=== PATIENT | male | born 1950 | race Caucasian/White ===

== ENCOUNTER 2023-03-07 23:50 | Emergency (ER) | payer MEDICARE, OTHER, SELFPAY ==
--- NOTE | 2023-03-07 23:53 | ED.GENADULT ---
HPI - General Adult General Time Seen by Provider: 23:53 Date Seen: 03/07/23 Chief complaint: Arrhythmia/Palpitations Stated complaint: Irregular Heartbeat Time Seen by Provider: 03/07/23 23:52 Source: patient, RN notes reviewed and old records reviewed Mode of arrival: ambulatory Limitations: no limitations History of Present Illness HPI narrative: 72-year-old male who presents today with palpitations. Patient reports a long history of intermittent palpitations, had an episode about 2 years ago and subsequently underwent ablation. No known further episodes although it sounds like he is generally minimally symptomatic with these. Tonight around 10:00 p.m. started feeling like his heart was going fast and checked it, rate was about 140 and so decided to come to the emergency department. Denies chest pain, shortness of breath, nausea, vomiting, lightheadedness. Takes a baby aspirin but no other medications now. No allergies. No blood thinners and does not have a Watchman by his report. Related Data Home Medications Medication Instructions Recorded Confirmed aspirin 81 mg capsule 81 mg PO DAILY 03/08/23 03/08/23 glucosamine-chondroitin .ROUTE 03/08/23 tamsulosin PO 03/08/23 Allergies Allergy/AdvReac Type Severity Reaction Status Date / Time Penicillins AdvReac Verified 03/08/23 00:05 Review of Systems Status of ROS: Reports: 10 or more systems reviewed and unremarkable except as noted in History and below PFSH PFS Social History Smoking Status: Never smoker Do you use any of these nicotine containing products: None How often do you have a drink containing alcohol: never AUDIT-C Alcohol total score: 0 Non-prescribed substance use: denies use Exam Narrative: Exam Narrative: General: Well-developed and well-nourished, no acute distress Head: Atraumatic and normocephalic Eyes: Pupils are equal reactive, extraocular motions intact, conjunctiva clear ENT: External nose and ears are normal, posterior pharynx without erythema or exudate Neck: No midline cervical tenderness, full spontaneous range of motion the neck, trachea midline, no adenopathy Heart: Tachycardic but regular Lungs: Clear to auscultation bilaterally without wheezes or crackles Abdomen: Soft, nontender, nondistended with active bowel sounds Musculoskeletal: No tenderness, deformity, or edema Neurologic: Awake, alert, and oriented x3, no gross focal neurologic deficits, cranial nerves intact as tested Psych: Mood and affect are appropriate Skin: No rashes Const: Vital Signs, click to edit/add: Vital Signs - 24 hr 03/08/23 00:00 03/08/23 00:10 03/08/23 00:15 Temperature 97.8 F Pulse Rate 138 H 141 H Pulse Rate [Left P ulse Oximeter] 148 H Respiratory Rate 18 Blood Pressure Blood Pressure [Ri ght Upper Arm] 158/97 H Pulse Oximetry 97 96 95 Oxygen Delivery Me thod Room Air Oxygen Flow Rate 03/08/23 00:16 03/08/23 00:20 03/08/23 00:22 Temperature Pulse Rate 140 H 138 H 138 H Pulse Rate [Left P ulse Oximeter] Respiratory Rate Blood Pressure 143/115 H 151/110 H Blood Pressure [Ri ght Upper Arm] Pulse Oximetry 95 95 95 Oxygen Delivery Me thod Oxygen Flow Rate 03/08/23 00:25 03/08/23 00:26 03/08/23 00:32 Temperature Pulse Rate 141 H 143 H 140 H Pulse Rate [Left P ulse Oximeter] Respiratory Rate Blood Pressure 120/91 H 134/98 H Blood Pressure [Ri ght Upper Arm] Pulse Oximetry 95 95 95 Oxygen Delivery Me thod Oxygen Flow Rate 03/08/23 00:35 03/08/23 00:36 03/08/23 00:40 Temperature Pulse Rate 138 H 139 H 133 H Pulse Rate [Left P ulse Oximeter] Respiratory Rate 16 Blood Pressure 133/104 H Blood Pressure [Ri ght Upper Arm] Pulse Oximetry 94 95 95 Oxygen Delivery Me thod Oxygen Flow Rate 03/08/23 00:41 03/08/23 00:45 03/08/23 00:47 Temperature Pulse Rate 138 H 138 H Pulse Rate [Left P ulse Oximeter] Respiratory Rate Blood Pressure 141/111 H 154/116 H Blood Pressure [Ri ght Upper Arm] Pulse Oximetry 95 95 Oxygen Delivery Me thod Oxygen Flow Rate 03/08/23 00:54 03/08/23 00:55 03/08/23 01:00 Temperature Pulse Rate 145 H 143 H 137 H Pulse Rate [Left P ulse Oximeter] Respiratory Rate Blood Pressure Blood Pressure [Ri ght Upper Arm] Pulse Oximetry 94 94 93 Oxygen Delivery Me thod Oxygen Flow Rate 03/08/23 01:02 03/08/23 01:05 03/08/23 01:10 Temperature Pulse Rate 137 H 139 H 137 H Pulse Rate [Left P ulse Oximeter] Respiratory Rate 16 Blood Pressure 137/101 H Blood Pressure [Ri ght Upper Arm] Pulse Oximetry 94 95 94 Oxygen Delivery Me thod Oxygen Flow Rate 03/08/23 01:15 03/08/23 01:16 03/08/23 01:28 Temperature Pulse Rate 138 H 137 H 140 H Pulse Rate [Left P ulse Oximeter] Respiratory Rate Blood Pressure 146/104 H Blood Pressure [Ri ght Upper Arm] Pulse Oximetry 94 94 95 Oxygen Delivery Me thod Oxygen Flow Rate 03/08/23 01:30 03/08/23 01:31 03/08/23 01:35 Temperature Pulse Rate 136 H 137 H 135 H Pulse Rate [Left P ulse Oximeter] Respiratory Rate Blood Pressure 137/105 H Blood Pressure [Ri ght Upper Arm] Pulse Oximetry 95 94 96 Oxygen Delivery Me thod Oxygen Flow Rate 03/08/23 01:40 03/08/23 01:49 03/08/23 01:50 Temperature Pulse Rate 135 H 142 H 137 H Pulse Rate [Left P ulse Oximeter] Respiratory Rate Blood Pressure Blood Pressure [Ri ght Upper Arm] Pulse Oximetry 95 96 95 Oxygen Delivery Me thod Oxygen Flow Rate 03/08/23 01:52 03/08/23 01:55 03/08/23 02:00 Temperature Pulse Rate 136 H 138 H 135 H Pulse Rate [Left P ulse Oximeter] Respiratory Rate Blood Pressure 140/118 H Blood Pressure [Ri ght Upper Arm] Pulse Oximetry 94 94 96 Oxygen Delivery Me thod Oxygen Flow Rate 03/08/23 02:02 03/08/23 02:05 03/08/23 02:10 Temperature Pulse Rate 137 H 136 H 136 H Pulse Rate [Left P ulse Oximeter] Respiratory Rate Blood Pressure 131/103 H Blood Pressure [Ri ght Upper Arm] Pulse Oximetry 95 95 95 Oxygen Delivery Me thod Oxygen Flow Rate 03/08/23 02:15 03/08/23 02:20 03/08/23 02:25 Temperature Pulse Rate 136 H 136 H 136 H Pulse Rate [Left P ulse Oximeter] Respiratory Rate Blood Pressure Blood Pressure [Ri ght Upper Arm] Pulse Oximetry 95 94 95 Oxygen Delivery Me thod Oxygen Flow Rate 03/08/23 02:30 03/08/23 02:31 03/08/23 02:35 Temperature Pulse Rate 136 H 136 H 136 H Pulse Rate [Left P ulse Oximeter] Respiratory Rate Blood Pressure 122/93 H Blood Pressure [Ri ght Upper Arm] Pulse Oximetry 95 95 96 Oxygen Delivery Me thod Oxygen Flow Rate 03/08/23 02:40 03/08/23 03:07 Temperature Pulse Rate 137 H Pulse Rate [Left P ulse Oximeter] Respiratory Rate Blood Pressure Blood Pressure [Ri ght Upper Arm] Pulse Oximetry 95 Oxygen Delivery Me thod Nasal Cannula Oxygen Flow Rate 2 Course Course ED Course: Patient seen examined, prior records are reviewed. Patient presents today with fast heart rate, found to be in atrial flutter with 2-1 block and rate 148. Other than palpitations, patient is asymptomatic with this. Discussed treatment. Patient says he thinks he may have some short episodes of atrial flutter occasionally, although nothing verified since his ablation. He is not on blood thinners. Due to patient with minimally symptomatic atrial flutter and concern for paroxysmal atrial flutter or fibrillation, patient is felt to be slightly higher risk for thromboembolic event from electrical cardioversion. Will work on rate control with diltiazem and magnesium of fluids, will discuss with [facility]. Did consider pulmonary embolism but patient has no shortness of breath, pleuritic chest pain, and has a history of atrial flutter and fibrillation in the past. Reevaluation(s) Time of Reevaluation #1: 00:55 Reevaluation #1: Labs so far to panel interpreted by me with reassuring CBC, negative troponin. After diltiazem 20 mg, no change in heart rate. Repeat diltiazem is ordered. Time of Reevaluation #2: 01:21 Reevaluation #2: Patient rechecked after 2nd dose of Cardizem with no improvement and rate, blood pressure remained stable and patient still remains asymptomatic. Discussed disposition with the patient. Given atrial flutter with no response to diltiazem in patient who is a poor candidate for urgent or emergent electrical cardioversion, may need to admit for rate control. Discussed this with the patient and will discuss with Cardiology. Age adjusted D-dimer is negative. Time of Reevaluation #3: 01:32 Reevaluation #3: Care discussed with cardiology at [facility]. Recommends Eliquis, delayed 2 hours and cardiovert. Patient updated with plan and is agreeable. Additional Reevaluation(s): 4:15 a.m. electrical cardioversion performed with anesthesia providing procedural sedation. Successful cardioversion, will monitor in the emergency department and anticipate discharge. Repeat EKG independently interpreted by me performed at 3:06 a.m. demonstrates sinus rhythm rate 59, no acute ST elevations or depressions, normal intervals, normal axis, MO 102, QTC 415. Compared to prior of earlier today, sinus rhythm has replaced atrial flutter. Vital Signs Vital signs: Initial Vital Signs Respiratory Effort Normal, Spontaneous, Non-Labored 03/07/23 23:56 Respiratory Depth Normal 03/07/23 23:56 Respiratory Pattern Normal 03/07/23 23:56 Vital Signs Temperature 97.8 F 03/08/23 00:00 Pulse Rate 148 H 03/08/23 00:00 Respiratory Rate 18 03/08/23 00:00 Blood Pressure 158/97 H 03/08/23 00:00 Pulse Oximetry 97 03/08/23 00:00 Oxygen Delivery Method Room Air 03/08/23 00:00 Temperature 97.8 F 03/08/23 00:00 Pulse Rate 137 H 03/08/23 02:40 Respiratory Rate 16 03/08/23 01:02 Blood Pressure 122/93 H 03/08/23 02:31 Pulse Oximetry 95 03/08/23 02:40 Oxygen Delivery Method Nasal Cannula 03/08/23 03:07 Oxygen Flow Rate 2 03/08/23 03:07 Medical Decision Making Medical Records Medical records reviewed: Yes I reviewed the patient's medical records Lab Data Lab results reviewed: Yes I reviewed the patient's lab results Labs: Lab Results 03/08/23 03/08/23 Range/Units 00:05 02:46 WBC 4.81 (4.50-11.00) K/uL RBC 4.80 (4.30-5.90) m/uL Hgb 15.6 (13.5-17.5) gm/dL Hct 46.1 (37.0-53.0) % MCV 96 (80-100) fL MCH 33 (26-34) pg MCHC 34 (32-36) gm/dL RDW Coeff of Meghana 11.7 (11.5-15.5) % Plt Count 253 (140-440) K/uL Neut % (Auto) 51.0 (42.0-72.0) % Lymph % (Auto) 32.2 (20-44) % [place] % (Auto) 12.9 H (0.0-11.0) % Eos % (Auto) 2.5 (0.0-7.0) % Baso % (Auto) 0.6 (0.0-3.0) % Neut # (Auto) 2.45 (1.7-7.0) K/uL Lymph # (Auto) 1.55 (0.90-2.90) K/uL [place]all # (Auto) 0.60 (0.00-0.90) K/UL Eos # (Auto) 0.12 (0.00-0.50) K/uL Baso # (Auto) 0.03 (0.00-0.30) K/uL Abs Immat Gran (auto) 0.04 (0.00-0.30) K/uL Imm/Tot Granulo (auto) 0.8 % D-Dimer Quant (PE/DVT) 0.66 H (0.00-0.50) ug/ml Sodium 143 (135-149) mmol/L Potassium 3.7 (3.6-5.1) mmol/L Chloride 109 (96-114) mmol/L Carbon Dioxide 24 (20-32) mmol/L Anion Gap 10 (7-15) mEq/L BUN 19 (7-30) mg/dL Creatinine 1.1 (0.5-1.5) mg/dL Estimated Creat Clear 57.86 Estimated GFR 71 ml/min Glucose 98 (60-115) mg/dL Calcium 9.4 (8.4-10.6) mg/dL Magnesium 1.9 (1.5-2.6) mg/dL NT-Pro-B Natriuret Pep 199 pg/mL Urine Color Yellow (Yellow) Urine Appearance Clear (Clear) Urine pH 7.0 (5.0-8.5) Ur Specific [place] 1.020 (1.000-1.030) Urine Protein Negative (Negative) Urine Glucose (UA) Negative (Negative) Urine Ketones Negative (Negative) Urine Blood Negative (Negative) Urine Nitrite Negative (Negative) Urine Bilirubin Negative (Negative) Urine Urobilinogen 0.2 (0.2-1.0) Ur Leukocyte Esterase Negative (Negative) Urine RBC 0-2 (0-2) Urine WBC 0-2 (0-5) Ur Squamous Epith Cells Few (None-Few) Urine Bacteria None (None) POC Troponin I 0.00 L (0.01-0.04) ng/ml ECG Data Attestation: I personally reviewed and interpreted this ECG as follows: Prior ECG tracings: not available for review Interpretation: Performed at 11:50 p.m. demonstrates atrial flutter with 2-1 block rate 148, diffuse ST changes, normal intervals, normal axis. No prior for comparison. Discharge Plan Discharge Clinical Impression: Atrial flutter with rapid ventricular response Patient Disposition: Home w/ Parent or Adult Condition: Improved Instructions: Atrial Flutter (ED), Blood Thinners (ED) Additional Instructions: Take Eliquis as prescribed Take metoprolol as needed if you develop atrial flutter fibrillation again Follow-up with your aboriginal community council member this week Activity Level: Activity as Tolerated Discharge Diet: Regular Prescriptions: No Action tamsulosin PO glucosamine-chondroitin .ROUTE aspirin 81 mg capsule 81 mg PO DAILY Stand Alone Forms: [employer] Info Instructions Procedures Additional Procedures Procedure name: Electrical cardioversion Pre procedure diagnosis: Atrial flutter with rapid response Post procedure diagnosis: Same Written consent by: patient Site marking: not applicable Verification/time out: correct patient Estimated blood loss (if any): none Conclusion: patient tolerated procedure Additional comments: Discussed risks and benefits of procedure and sedation with patient, written consent was obtained. Patient monitor with special education coordinator, pulse oximetry, end-tidal CO2. Airway supplies available at the bedside. After time-out, sedation was administered. After adequate sedation, a synchronized 100 joule shock was delivered. Brief pause and bradycardic dysrhythmia with resumption sinus rhythm rate in the 50s to 60s. Patient tolerated the procedure well. Recovered from anesthesia. Total MD time 10 minutes
[2023-03-08] VITALS (94 sets, daily range): BP systolic 87–158; BP diastolic 62–118; PULSE 55–148; RESP 11–23; TEMP 36.6; O2SAT 93–98; BMI 25.8
[2023-03-08 00:21] LABS: Basophils Absolute Auto 0.03 K/uL (0.00-0.30); Basophils Percent Auto 0.6 % (0.0-3.0); Eosinophils Absolute Auto 0.12 K/uL (0.00-0.50); Eosinophils Percent Auto 2.5 % (0.0-7.0); Hematocrit 46.1 % (37.0-53.0); Hemoglobin* 15.6 gm/dL (13.5-17.5); Immature Granulocytes Abs Auto 0.04 K/uL (0.00-0.30); Immature Granulocytes Pct Auto 0.8 %; Lymphocytes Absolute Auto 1.55 K/uL (0.90-2.90); Lymphocytes Percent Auto 32.2 % (20-44); Mean Corpuscular HGB Conc 34 gm/dL (32-36); Mean Corpuscular Hemoglobin 33 pg (26-34); Mean Corpuscular Volume 96 fL (80-100); Monocytes Percent Auto 12.9 % (0.0-11.0); Neutrophils Absolute Auto 2.45 K/uL (1.7-7.0); Platelet Count* 253 K/uL (140-440); RDW Coefficient of Variation % 11.7 % (11.5-15.5); White Blood Count* 4.81 K/uL (4.50-11.00)
[2023-03-08] MEDS: dilTIAZem 5 MG/ML inj 20 MG IVP ×2 (00:23→01:00)
[2023-03-08 00:25] LABS: Slide Review Reflex No
[2023-03-08] MEDS: MAGNESIUM IV 2 GM/50 ML PIGGYBACK IVPB (00:28)
[2023-03-08] MEDS: 0.9 % SODIUM CHLORIDE 1000 ml 1,000 ML IV (00:28)
--- OUTSIDE RECORDS SUMMARY | 2023-03-08 00:57 | XMS_ITS | Continuity of Care Document ---
Author Name Unknown Address [address] [place] [address] Phone Organization [facility] Address [address] [place] [address] Phone Care Team Providers Care [employer] Installer Name Role Phone MD Suresh Stevens Primary Care Provider MD Suresh Stevens Attending Provider MD Suresh Stevens Referring Provider Care Teams Patient Care Team Team Status: Active Member Role Status Demetra Stevens MD Primary Care Provider Active Visit Care Team Team Status: Inactive Member Role Status Demetra Stevens MD Primary Care Provi kathryn, Attending Provider, Referring Provider Active Chief Complaint and Reason for Visit Chief Complaint AWV Reason for Visit Impaired fasting glu cose Preventative health care Renal cell carcinoma of left kidney Encounter for routine adult health examination Allergies, Adverse Reactions, Alerts Allergen Type Severity Reaction Last Updated Verified Status Penicillins Allergy Moderate hives/rash November 11, 2022 8:25am Tee s Active Social History Smoking Status Status Start Date End Date Date of Observa tion Ex-smoker (finding) October 30, 2021 10:13am Additional Data Assigned Sex Male Family History Relationship Condition Age at Onset Recorded Date/T jackie father Hypertension Unknown Diabetes mellitus Unknown Diagnosis unknown Unknown mother Malignant neoplasm of uterus Unknown sister Down syndrome Unknown sister Malignant neoplasm of lung Unknown extended family member Diagnosis unknown Unknown Problems Active Problems Medical Problem Onset Date Status Junctional rhythm Active Presbyopia of both eyes Active Preventative health care Active Combined forms of age-related cataract of both e yes Active Hearing loss October 15, 2018 Active Multiple melanocytic nevi Active Actinic keratosis Active Seborrheic keratosis Active Dermatofibroma Active Sinus bradycardia Active Renal cell carcinoma of left kidney Active Impaired fasting glucose Active Bacterial sinusitis September 11, 2021 Active Right foot pain Active Sun-damaged skin Active Inactive/Resolved Problems Medical Problem Onset Date Status Junctional rhythm Resolved History of dysplastic nevus Reso lved History of dysplastic nevus Reso lved Palpitations Resolved Lightheadedness Resolved Fracture of left wrist Resolved Atrial flutter Resolved Chronic anticoagulation Resolved Bradycardia Resolved S/P ablation of atrial flutter R esolved Screening for AAA (abdominal aortic aneurysm) ne 2020 Resolved Bilateral impacted cerumen Resol shivani Medications Medication Status Dose Units Route Directions Qty Days St art Date End Date Instructions Tamsulosin Discontin ued 0.4 MG PO Daily 2019 8:36am 2019 8:36am Tamsulosin Discontin ued 0 .ROUTE .[facility] 2019 8:36am November 01, 2019 9:07am TAKE 1 CAPSULE BY MOUTH ONCE DAILY 30 MINUTES AFTER THE SAME MEAL. Tamsulosin Discontin ued 0 .ROUTE .[facility] November 06, 2020 9:24am February 13, 2021 9:19am TAKE 1 CAPSULE BY MOUTH ONCE DAILY 30 MINUTES AFTER THE SAME MEAL. Tamsulosin Discontin ued 0 .ROUTE .[facility] February 13, 2021 9:19am 2021 9:39am TAKE 1 CAPSULE BY MOUTH ONCE DAILY 30 MINUTES AFTER THE SAME MEAL. Tamsulosin Discontin ued 0 .ROUTE .[facility] 2021 9:39am November 06, 2021 9:17am TAKE 1 CAPSULE BY MOUTH ONCE DAILY 30 MINUTES AFTER THE SAME MEAL. Ascorbate Calcium (Vitamin C) Active 500 MG PO Daily December 16, 2018 12:00am Glucosamine Sulfate (Glucosamine) 500 mg tablet Active 500 MG PO Two times per day December 16, 2018 12:00am Aspirin (Adult Low Dose Aspirin) 81 mg tablet,delaye d release (DR/EC) Discontin ued 81 MG PO Daily November 01, 2020 12:00am October 30, 2021 10:16a m Rivaroxaban (Xarelto) 20 mg tablet Discontin ued 20 MG PO Every evening 60 August 29, 2021 1:00am November 30, 2021 5:20pm must administer with evening meal Start 2 weeks prior to the ablation Aspirin Active 81 MG PO Daily 30 November 30, 2021 12:00am Metformin Discontin ued 500 MG PO Two times per day 180 November 01, 2019 9:07am November 28, 2020 2:47pm Tamsulosin Discontin ued 0 .ROUTE .[facility] November 01, 2019 9:07am November 06, 2020 9:24am TAKE 1 CAPSULE BY MOUTH ONCE DAILY 30 MINUTES AFTER THE SAME MEAL. Tamsulosin Discontin ued 0.4 MG PO Daily November 16, 2018 12:00am Februa 2019 8:36am Metformin Discontin ued 500 MG PO Two times per day 180 November 16, 2018 12:00am November 01, 2019 9:07am Sulfamethoxaz ole-Trimethop rim Discontin ued 1 TAB PO Once November 16, 2018 12:00am September 19, 2019 7:18am VORB LOT#:[id number] EXP:02/16 SAMPLE GIVEN, ONCE, ONE DOSE, NO REFILLS Tamsulosin Discontin ued 0 .ROUTE .[facility] November 06, 2021 9:17am November 11, 2022 8:59am TAKE 1 CAPSULE BY MOUTH ONCE DAILY 30 MINUTES AFTER THE SAME MEAL. Azithromycin Discontin ued 0 PO .COMPLEX September 11, 2021 12:00am October 30, 2021 10:16a m For 250 mg dose pack: take 500 mg today (day 1), then 250 mg for 4 days (days 2-5) PO Tamsulosin Active 0 .ROUTE .[facility] November 11, 2022 8:59am TAKE 1 CAPSULE BY MOUTH ONCE DAILY 30 MINUTES AFTER THE SAME MEAL. Hydrocodone-A cetaminophen ([place]) 7.5-325 mg tablet Discontin ued 1 TAB PO Q4H September 19, 2019 November 01, 2019 8:48am No driving for 4 hours after taking Immunizations Immunization Event Date Not Given Reason Dose Number [employer] Lot Number Vaccine Information Statement (VIS) Detail [id number] Purple Cap 12+ September 05, 2020 [id number] Purple Cap 12+ September 26, 2020 [id number] Purple Cap 12YR+ March 29, 2021 [id number] BV Magallanes Cap 12YR+ May 20, 2022 [id number] Magallanes Cap 12YR+ October 04, 2021 [id number] Influenza Quad 3 years+ Afluria February 25, 2020 Influenza IIV4 6M+ July 10, 2012 Influenza IIV4 6M+ February 25, 2020 Influenza IIV4 6M+ MDV March 16, 2015 Influenza (65+) trivalent FLUAD March 30, 2019 Influenza (65+) quadrivalent FLUAD March 17, 2021 Influenza (65+) quadrivalent FLUAD March 30, 2022 Influenza Quad 6M+ Fluarix-historic al March 17, 2018 Influenza Intradermal July 10, 2012 Fluzone High-Dose 65YR+ - Historical March 19, 2016 Fluzone High-Dose 65YR+ - Historical February 12, 2017 Pneumococcal Conjugate Vaccine, 13 valent June 09, 2015 Pneumococcal Polysacc. Vaccine, 23 valent September 17, 2017 Zoster (Shingrix) February 08, 2019 Zoster (Shingrix) April 15, 2019 Tetanus, Diphtheria (Td) generic June 19, 2010 Tetanus, Diphtheria (Td) generic July 03, 2020 Tdap-Tetanus, Diphtheria, Acellular Pertussis December 16, 2008 Tdap-Tetanus, Diphtheria, Acellular Pertussis June 19, 2010 Trivalent Influenza Vaccine May 19, 2010 Trivalent Influenza Vaccine April 11, 2013 Trivalent Influenza Vaccine March 30, 2014 Zoster (Zostavax) February 05, 2011 Medical Equipment Device Date Implanted Device Details DEVICE,CLOSURE VASCULAR 6-12FR October 30, 2021 DEVICE,CLOSURE VASCULAR 6-12FR October 30, 2021 DEVICE,CLOSURE VASCULAR 6-12FR October 30, 2021 Relevant Diagnostic Tests and/or Laboratory Data Laboratory Results Test Date/Time Result Interpretation Reference Range Result Comment Performing Site White Blood Count November 11, 2022 9:06am 4.2 K/uL 4.0-10.0 [facility] [id number] [address] [place] [address] 42442 Red Blood Count November 11, 2022 9:06am 4.40 M/uL 4.63-6.08 [facility] [id number] [address] [place] [address] 81330 Hemoglobin November 11, 2022 9:06am 14.2 g/dL 13.7-17.5 [facility] [id number] [address] [place] [address] 51786 Hematocrit November 11, 2022 9:06am 42.0 % 40.1-51.0 [facility] [id number] [address] [place] [address] 13086 Mean Corpuscular Volume November 11, 2022 9:06am 95.50 fl 80.00-98.0 0 [facility] [id number] [address] [place] [address] 74167 Mean Corpuscular Hemoglobin November 11, 2022 9:06am 32.3 pg 25.6-32.2 [facility] [id number] [address] [place] [address] 89514 Mean Corpuscular Hgb Concent Diff November 11, 2022 9:06am 33.8 g/dl 32.2-36.0 [facility] [id number] [address] [place] [address] 08724 Red Cell Distribution Width November 11, 2022 9:06am 11.8 % 11.6-14.4 [facility] [id number] [address] [place] [address] 49528 Platelet Count November 11, 2022 9:06am 230 K/uL 150-450 [facility] [id number] [address] [place] [address] 51431 Mean Platelet Volume November 11, 2022 9:06am 9.1 fl 9.1-12.4 [facility] [id number] [address] [place] [address] 83373 Absolute Neutrophils (auto) November 11, 2022 9:06am 1.97 K/uL 1.56-6.13 [facility] [id number] [address] [place] [address] 16611 Absolute Immature Granulocyte (auto November 11, 2022 9:06am 0.01 k/uL 0.00-0.07 [facility] [id number] [address] [place] [address] 49164 Absolute Lymphocytes (auto) November 11, 2022 9:06am 1.58 K/uL 1.18-3.74 [facility] [id number] [address] [place] [address] 36102 Absolute Monocytes (auto) November 11, 2022 9:06am 0.56 K/uL 0.24-0.82 [facility] [id number] [address] [facility] [address] Absolute Eosinophils (auto) November 11, 2022 9:06am 0.09 K/uL 0.04-0.54 [facility] [id number] [address] [facility] [address] Absolute Basophils (auto) November 11, 2022 9:06am 0.02 K/uL 0.00-0.20 [facility] [id number] [address] [facility] [address] Sodium Level November 11, 2022 9:06am 141 mmol/L 136-145 [facility] [id number] [address] [place] [address]703 Potassium Level November 11, 2022 9:06am 4.4 mmol/L 3.5-5.1 [facility] [id number] [address] [place] [address] 11695 Chloride Level November 11, 2022 9:06am 107 mmol/L 98-107 [facility] [id number] [address] [place] [address] 38799 Carbon Dioxide Level November 11, 2022 9:06am 30 mmol/L 23-32 [facility] [id number] [address] [place] [address] 57492 Anion Gap November 11, 2022 9:06am 4 5-15 [facility] [id number] [address] [place] [address] 63785 Glucose Level November 11, 2022 9:06am 105 mg/dL 60-99 [facility] [id number] [address] [place] [address] 23920 Blood Urea Nitrogen November 11, 2022 9:06am 19 mg/dL 8-23 [facility] [id number] [address] [place] [address] 08025 Creatinine November 11, 2022 9:06am 1.05 mg/dL 0.80-1.50 [facility] [id number] [address] [place] [address] 31206 Estimat Glomerular Filtration Rate November 11, 2022 9:06am 75 >90 See Comment Reference Units: mL/min/1.25i5xTCO declines with age, even in people without kidney disease. Please refer to the National Kidney Foundation website for a detailed explanation of eGFR based on age.[email or web address] dney.org/atoz/cont ent/gfr*Calculated using the 2020 CKD EPI equation*In EMR click on external links for further EGFR information. [facility] [id number] [address] [place] [address] 83668 Calcium Level November 11, 2022 9:06am 8.7 mg/dL 8.5-10.5 [facility] [id number] [address] [address] Cholesterol Level November 11, 2022 9:06am 228 mg/dL 0-199 NCEP Guideline:< 200 mg/dL Ityzxpznf062-361 mg/dL Borderline> 240 mg/dL Undesirable [facility] [id number] [address] [place] [address] 71184 HDL Cholesterol November 11, 2022 9:06am 75 mg/dL >60 NCEP guideline:> 60 mg/dL Good -19 mg/dL Standard risk< 40 mg/dL High risk [facility] [id number] [address] [place] [address] 45578 Non-HDL Cholesterol Calculated November 11, 2022 9:06am 153 0 [facility] [id number] [address] [address] Triglycerides Level November 11, 2022 9:06am 120 mg/dL 0-149 NCEP guideline:< 150 mg/dL Joielp406 - 199 mg/dL Borderline Anvv583 - 499 mg/dL High>= 500 mg/dL Very High [facility] [id number] [address] [address] LDL Cholesterol, Calculated November 11, 2022 9:06am 129 mg/dL <99 NCEP guideline:<= 100 mg/dL Psaeppivt165-676 mg/dL Vlqjjtulbk342-659 mg/dL Undesirable [facility] [id number] [address] [place] [address]30 Prostate Specific Antigen Screen November 11, 2022 9:06am 1.70 ng/mL 0.00-4.00 The testing method is a chemiluminometric immunoassay manufactured by [employer] and performed on the [employer]. Values obtained with different methods or kits may be different and cannot be used interchangeably. Test results cannot be interpreted as absolute evidence for the presence or absence of malignant disease. [facility] [id number] [address] [place] [address] 99199 Vital Signs Vital Reading Result Reference Range Collection Date/Time Height 170.18 cm November 11, 2022 8:35am Weight 81.64 kg November 11, 2022 8:35am Heart Rate 48 /min 60-100 November 11, 2022 8:35am Respiratory rate 16 /min 12-20 November 11, 2 023 8:35am Oxygen saturation by Pulse oximetry 99 % 88-10 0 November 11, 2022 8:35am BP Systolic 118 mm[Hg] 95-135 November 11, 2022 8:35am BP Diastolic 80 mm[Hg] 55-85 November 11, 2022 8:35am BMI (Body Mass Index) 28.1 kg/m2 November 112022 8:35am Advance Directives Advance Directive Response Recorded Date/ Time Does the facility have a copy writer y of the advance directive? No October 30, 2021 10:13am Insurance Providers Guarantor Pablo Granado Address [address] [facility] [address] Contact Info. Home Phone: Payer Policy Id Coverage Id Subscriber's Name Subscriber Id Effective Date Expiration Date [facility] [id number] Pablo Granado [id number] 2017 Medicare/NGS [id number] Pablo Granado [id number] 2018 [employer] [id number] Pablo Granado [id number] SELF PAY Self N/A For Life [id number] Pablo Granado [id number] 2018 Encounters Encounter Location(s) Arrival/Admit Date Discharge/Depart Date Provider(s) Departed Physician/Prov ider Office Visit [facility] November 11, 2022 8:24am November 11, 2022 9:08am Suresh Stevens MD Recent Diagnosis Onset Date Impaired fasting glucose Preventative health care Renal cell carcinoma of left kidney Encounter for routine adult health exami nation Assessments Diagnosis Onset Date Resolution Status Impaired fasting glucose acu te Preventative health care acu te Renal cell carcinoma of left kidney acute Encounter for routine adult health examination noneactive Plan of Treatment Author Suresh Stevens [facility] Authored November 11, 2022 9:01a m - Health Mgmt tab updated. + psa - chronic controlled - asymptomatic - monitor bmp - check fasting glucose Future Tests Future scheduled test information is unavailable Pending Tests Pending diagnostic test information is unavailable Future Visits Future appointment information is unavailable Referrals to Other Providers Referral information is unavailable Future Procedures Future procedure information is unavailable Future Medications Future medication information is unavailable Patient Instructions Patient instructions are unavailable
[2023-03-08 01:18] LABS: D Dimer Quantitative* 0.66 ug/ml (0.00-0.50)
[2023-03-08 01:29] LABS: Chloride* 109 mmol/L (96-114)
[2023-03-08 01:30] LABS: Potassium* 3.7 mmol/L (3.6-5.1); Sodium* 143 mmol/L (135-149)
[2023-03-08 01:32] LABS: Creatinine* 1.1 mg/dL (0.5-1.5); Est. Creatinine Clearance* 57.86; Estimated Glomerular Filt Rate 71 ml/min
[2023-03-08 01:33] LABS: Anion Gap 10 mEq/L (7-15); Blood Urea Nitrogen* 19 mg/dL (7-30); Calcium* 9.4 mg/dL (8.4-10.6); Carbon Dioxide* 24 mmol/L (20-32); Glucose* 98 mg/dL (60-115); Magnesium* 1.9 mg/dL (1.5-2.6)
[2023-03-08 01:41] LABS: NT Pro B Type NatriureticPept* 199 pg/mL
[2023-03-08] MEDS: APIXABAN 5 MG TABLET PO (01:41)
[2023-03-08 03:00] LABS: Appearance Urine Clear (Clear); Bilirubin Urine Negative (Negative); Blood Urine Negative (Negative); Color Urine Yellow (Yellow); Glucose Urine Negative (Negative); Ketones Urine Negative (Negative); Leukocyte Esterase Urine Negative (Negative); Nitrite Urine Negative (Negative); Protein Urine Negative (Negative); Urobilinogen Urine 0.2 (0.2-1.0)
[2023-03-08 03:02] LABS: RBC Urine 0-2 (0-2); Squamous Epithelial Cell Urine Few (None-Few); WBC Urine 0-2 (0-5)
--- NOTE | 2023-03-08 04:27 | P.ANES_ITS ---
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
--- NOTE | 2023-03-08 05:31 | ED.NURSE ---
patient walking around room, no pain, steady gait. tolerating fluids, no nausea. pt on way to pick him up. IV out tip intact.
== END 2023-03-08 06:00 | disposition home or self-care (01) ==
PROVIDERS: Emergency Provider Family Medicine
DX: I48.91 Unspecified atrial fibrillation (principal)
CPT/HCPCS: 36415; 410; 51798; 80048; 81001; 81003; 83735; 83880; 84484; 85025; 85379; 92960; 93005; 99140; 99285; 99291; A9270; J2704; J3475; J7030